=== PATIENT | male | born 1990 | race Caucasian/White ===

== ENCOUNTER 2020-11-21 21:05 | Inpatient (IN) | payer OTHER ==
[~2020-11-21] VITALS: Ht 177.8 cm; Wt 86.6 kg
[2020-11-21 21:11] VITALS: BP 142/94
[2020-11-21 21:40] LABS: ABSOLUTE LYMPHOCYTES 1.2 thou/uL (0.8-5.3); ABSOLUTE MONOCYTES 0.7 thou/uL (0.0-1.2); ABSOLUTE NEUTROPHILS 8.8 thou/uL (1.6-8.1); BASOPHILS 0.4 %; EOSINOPHILS 0.1 %; HEMATOCRIT 47.3 % (42.0-52.0); HEMOGLOBIN 16.3 gm/dL (14.0-18.0); MCH 34.4 pg (26.0-34.0); MCHC 34.5 g/dL (28.0-37.0); MCV 99.7 fL (80.0-100.0); MONOCYTES 6.5 %; MPV 7.7 fl. (7.2-11.1); NUCLEATED RBCS 0 /100WBC; PLATELET COUNT* 290 thou/uL (150-400); RBC 4.74 mil/uL (4.50-6.00); RDW-CV 13.8 % (10.5-14.5); WBC 10.7 thou/uL (4.0-11.0)
[2020-11-21 21:48] LABS: CALCIUM 8.5 mg/dL (8.5-10.1); CREATININE 0.9 mg/dL (0.6-1.3); POTASSIUM 3.3 mmol/L (3.5-5.1)
[2020-11-21 21:53] LABS: ALBUMIN 3.3 g/dL (3.4-5.0); TOTAL BILIRUBIN 0.4 mg/dL (<0.1-1.0); TOTAL PROTEIN 7.1 g/dL (6.4-8.2)
[2020-11-21 23:09] VITALS: BP 130/80
[2020-11-22 00:19] LABS: URINE BILIRUBIN NEGATIVE (Negative); URINE BLOOD NEGATIVE (Negative); URINE CLARITY CLEAR; URINE COLOR YELLOW; URINE GLUCOSE-RANDOM NEGATIVE (Negative); URINE KETONES TRACE (Negative); URINE LEUKOCYTES-REFLEX NEGATIVE (Negative); URINE NITRITE-REFLEX NEGATIVE (Negative); URINE PROTEIN NEGATIVE (Negative); URINE SPECIFIC GRAVITY 1.015 (1.005-1.030); URINE UROBILINOGEN 0.2 E.U./dl (0.2-1.0)
[2020-11-22 02:25] VITALS: BP 135/76
[2020-11-22 02:40] VITALS: BP 130/87
[2020-11-22 08:00] VITALS: BP 115/76
[2020-11-22 12:11] VITALS: BP 129/91
[2020-11-22 12:24] LABS: HEMATOCRIT 49.2 % (42.0-52.0); HEMOGLOBIN 16.9 gm/dL (14.0-18.0); MCH 34.2 pg (26.0-34.0); MCHC 34.3 g/dL (28.0-37.0); MCV 99.6 fL (80.0-100.0); MPV 7.7 fl. (7.2-11.1); NUCLEATED RBCS 0 /100WBC; PLATELET COUNT* 247 thou/uL (150-400); RBC 4.93 mil/uL (4.50-6.00); WBC 12.5 thou/uL (4.0-11.0)
[2020-11-22 12:34] LABS: INR 1.1; PROTIME 11.2 Seconds (9.20-11.50)
[2020-11-22 12:41] LABS: ALBUMIN 3.1 g/dL (3.4-5.0); CALCIUM 8.7 mg/dL (8.5-10.1); CREATININE 0.8 mg/dL (0.6-1.3); MAGNESIUM 1.7 mg/dL (1.8-2.4); PHOSPHORUS* 3.2 mg/dL (2.5-4.9); POTASSIUM 3.4 mmol/L (3.5-5.1); TOTAL PROTEIN 6.6 g/dL (6.4-8.2)
[2020-11-22 12:55] LABS: ABSOLUTE LYMPHOCYTES 0.8 thou/uL (0.8-5.3); ABSOLUTE MONOCYTES 0.4 thou/uL (0.0-1.2); ABSOLUTE NEUTROPHILS 11.4 thou/uL (1.6-8.1); ANISOCYTOSIS 1+; PLATELET ESTIMATE ADEQUATE; POIKILOCYTOSIS 1+
[2020-11-22 16:50] VITALS: BP 130/97
[2020-11-22 18:13] LABS: URINE BLOOD NEGATIVE (Negative); URINE CLARITY CLEAR; URINE GLUCOSE-RANDOM NEGATIVE (Negative); URINE KETONES TRACE (Negative); URINE LEUKOCYTES-REFLEX NEGATIVE (Negative); URINE PROTEIN 1+ (Negative); URINE SPECIFIC GRAVITY >= 1.030 (1.005-1.030); URINE UROBILINOGEN 0.2 E.U./dl (0.2-1.0)
[2020-11-22 18:20] LABS: AMP/METHAMP Negative (Negative); BARBITURATES Negative (Negative); BENZODIAZEPINES Negative (Negative); COCAINE Negative (Negative); METHADONE Negative (Negative); OPIATES POSITIVE (Negative); PCP Negative (Negative); THC POSITIVE (Negative)
[2020-11-22 18:23] LABS: URINE BILIRUBIN 1+ (Negative); URINE COLOR AMBER; URINE NITRITE-REFLEX POSITIVE (Negative)
[2020-11-22 18:24] LABS: ICTOTEST (BILI CONFIRMATORY) Positive (Negative)
[2020-11-22 18:27] LABS: AMORPHOUS URATES Few /LPF (None Seen); BACTERIA-REFLEX 1-9 Few /HPF (None Seen); CASTS None Seen /LPF (None Seen); MUCUS >6 Heavy strn/LPF (None Seen); SQUAMOUS 0-3 Few /LPF (0-3); URINE RBC 0-2 Rare /HPF (0-2); URINE WBC-REFLEX 0-5 Rare /HPF (0-5)
[2020-11-23] VITALS: BP 131/90
[2020-11-23 04:00] VITALS: BP 136/87
[2020-11-23 07:56] VITALS: BP 128/99
[2020-11-23 10:51] LABS: CALCIUM 7.4 mg/dL (8.5-10.1); CREATININE 0.9 mg/dL (0.6-1.3); POTASSIUM 3.8 mmol/L (3.5-5.1)
[2020-11-23 10:53] LABS: MAGNESIUM 1.7 mg/dL (1.8-2.4); PHOSPHORUS* 1.9 mg/dL (2.5-4.9)
[2020-11-23 11:44] VITALS: BP 137/101
[2020-11-23 16:23] VITALS: BP 135/86
[2020-11-24] VITALS: BP 110/76
[2020-11-24 04:00] VITALS: BP 111/61
[2020-11-24 04:04] LABS: CALCIUM 7.6 mg/dL (8.5-10.1); CREATININE 0.9 mg/dL (0.6-1.3); MAGNESIUM 1.8 mg/dL (1.8-2.4); PHOSPHORUS* 2.2 mg/dL (2.5-4.9); POTASSIUM 3.1 mmol/L (3.5-5.1)
[2020-11-24 08:00] VITALS: BP 124/84
[2020-11-24 12:00] VITALS: BP 106/79
[2020-11-24 16:00] VITALS: BP 128/83
[2020-11-24 20:00] VITALS: BP 120/80
[2020-11-25] VITALS: BP 113/88
[2020-11-25 04:00] VITALS: BP 150/71
[2020-11-25 04:25] LABS: ABSOLUTE BASOPHILS 0.1 thou/uL (0.0-0.2); ABSOLUTE EOSINOPHILS 0.2 thou/uL (0.0-0.7); ABSOLUTE LYMPHOCYTES 1.5 thou/uL (0.8-5.3); ABSOLUTE MONOCYTES 1.3 thou/uL (0.0-1.2); BASOPHILS 0.7 %; HEMATOCRIT 37.4 % (42.0-52.0); MCH 34.2 pg (26.0-34.0); MCHC 34.5 g/dL (28.0-37.0); MCV 99.3 fL (80.0-100.0); MONOCYTES 13.2 %; MPV 8.4 fl. (7.2-11.1); NUCLEATED RBCS 0 /100WBC; POLYS 69.1 %; RBC 3.77 mil/uL (4.50-6.00); RDW-CV 13.6 % (10.5-14.5); WBC 10.2 thou/uL (4.0-11.0)
[2020-11-25 04:34] LABS: CALCIUM 7.7 mg/dL (8.5-10.1); CREATININE 0.8 mg/dL (0.6-1.3); HEMOGLOBIN 12.9 gm/dL (14.0-18.0); MAGNESIUM 2.2 mg/dL (1.8-2.4); PHOSPHORUS* 2.3 mg/dL (2.5-4.9); PLATELET COUNT* 157 thou/uL (150-400)
[2020-11-25 04:37] LABS: POTASSIUM 2.8 mmol/L (3.5-5.1)
[2020-11-25 08:04] VITALS: BP 121/76
[2020-11-25] MEDS ORDERED: ATIVAN1 M1 PO (09:38)
[2020-11-25] MEDS ORDERED: OXYCODONE HCL 55 MG PO (09:38)
[2020-11-25 10:12] VITALS: BP 121/76
[2020-11-25 12:14] VITALS: BP 128/88
== END 2020-11-25 12:15 | disposition home or self-care (01) | DRG 440 ==
LOC: M.ERS 21:05 → M.TBA-ER 22:14 → M.2W 11-22 03:56
PROVIDERS: Family Medicine; ADMIT Internal Medicine; ATTEND Internal Medicine
DX: K85.20 Alcohol induced acute pancreatitis without necrosis or infection (principal); F17.210 Nicotine dependence, cigarettes, uncomplicated; E87.6 Hypokalemia; R74.9 Abnormal serum enzyme level, unspecified; E83.39 Other disorders of phosphorus metabolism; E83.51 Hypocalcemia; F10.129 Alcohol abuse with intoxication, unspecified; Y90.9 Presence of alcohol in blood, level not specified; Z20.822 Contact with and (suspected) exposure to COVID-19

== ENCOUNTER 2021-02-12 13:54 | Inpatient (IN) | payer OTHER ==
[~2021-02-12] VITALS: Ht 177.8 cm; Wt 89.1 kg
[~2021-02-12 13:54] MED LIST: ATIVAN1 M1 PO; OXYCODONE HCL 55 MG PO
[2021-02-12 14:04] VITALS: BP 183/111
[2021-02-12 14:13] LABS: ABSOLUTE BASOPHILS 0.1 thou/uL (0.0-0.2); ABSOLUTE EOSINOPHILS 0.2 thou/uL (0.0-0.7); ABSOLUTE LYMPHOCYTES 3.7 thou/uL (0.8-5.3); ABSOLUTE MONOCYTES 1.4 thou/uL (0.0-1.2); ABSOLUTE NEUTROPHILS 9.5 thou/uL (1.6-8.1); BASOPHILS 0.9 %; EOSINOPHILS 1.3 %; HEMATOCRIT 53.7 % (42.0-52.0); HEMOGLOBIN 18.4 gm/dL (14.0-18.0); LYMPHOCYTES 24.7 %; MCH 34.1 pg (26.0-34.0); MCHC 34.4 g/dL (28.0-37.0); MCV 99.3 fL (80.0-100.0); MONOCYTES 9.5 %; MPV 7.6 fl. (7.2-11.1); NUCLEATED RBCS 0 /100WBC; PLATELET COUNT* 352 thou/uL (150-400); POLYS 63.6 %; RDW-CV 14.5 % (10.5-14.5); WBC 14.9 thou/uL (4.0-11.0)
[2021-02-12 14:21] LABS: ANION GAP 15 mmol/L (7-16); BUN 4 mg/dL (7-18); CHLORIDE 97 mmol/L (98-107); CO2 23 mmol/L (21-32); CREATININE 1.1 mg/dL (0.6-1.3); GLUCOSE 154 mg/dL (70-99); POTASSIUM 3.1 mmol/L (3.5-5.1); SODIUM 135 mmol/L (136-145)
[2021-02-12 14:27] LABS: ALBUMIN 4.3 g/dL (3.4-5.0); ALKALINE PHOSPHATASE 139 U/L (46-116); SGOT 40 U/L (15-37); SGPT 41 U/L (30-65); TOTAL BILIRUBIN 0.8 mg/dL (<0.1-1.0); TOTAL PROTEIN 8.9 g/dL (6.4-8.2)
[2021-02-12 15:00] LABS: LIPASE > 30000 U/L (73-393)
[2021-02-12 15:47] LABS: URINE BILIRUBIN NEGATIVE (Negative); URINE BLOOD NEGATIVE (Negative); URINE CLARITY CLEAR; URINE COLOR YELLOW; URINE GLUCOSE-RANDOM NEGATIVE (Negative); URINE KETONES 1+ (Negative); URINE LEUKOCYTES-REFLEX NEGATIVE (Negative); URINE NITRITE-REFLEX NEGATIVE (Negative); URINE PROTEIN NEGATIVE (Negative); URINE SPECIFIC GRAVITY <= 1.005 (1.005-1.030); URINE UROBILINOGEN 0.2 E.U./dl (0.2-1.0)
[2021-02-12 15:55] LABS: MAGNESIUM 2.2 mg/dL (1.8-2.4); PHOSPHORUS* 3.4 mg/dL (2.5-4.9)
[2021-02-12 18:33] LABS: AMP/METHAMP Negative (Negative); BARBITURATES Negative (Negative); BENZODIAZEPINES Negative (Negative); COCAINE Negative (Negative); METHADONE Negative (Negative); OPIATES POSITIVE (Negative); PCP Negative (Negative); THC POSITIVE (Negative)
[2021-02-12 20:44] VITALS: BP 133/62
[2021-02-12 23:41] VITALS: BP 144/83
[2021-02-13 03:52] VITALS: BP 133/89
[2021-02-13 04:49] LABS: ABSOLUTE LYMPHOCYTES 0.9 thou/uL (0.8-5.3); ABSOLUTE MONOCYTES 1.5 thou/uL (0.0-1.2); ABSOLUTE NEUTROPHILS 13.4 thou/uL (1.6-8.1); BASOPHILS 0.2 %; HEMATOCRIT 56.4 % (42.0-52.0); HEMOGLOBIN 19.1 gm/dL (14.0-18.0); LYMPHOCYTES 5.5 %; MCH 33.8 pg (26.0-34.0); MCHC 33.9 g/dL (28.0-37.0); MCV 99.6 fL (80.0-100.0); MONOCYTES 9.6 %; MPV 8.1 fl. (7.2-11.1); NUCLEATED RBCS 0 /100WBC; POLYS 84.7 %; RBC 5.66 mil/uL (4.50-6.00); RDW-CV 14.7 % (10.5-14.5); WBC 15.8 thou/uL (4.0-11.0)
[2021-02-13 05:02] LABS: CALCIUM 9.2 mg/dL (8.5-10.1); CREATININE 0.8 mg/dL (0.6-1.3)
[2021-02-13 05:18] LABS: POTASSIUM 4.2 mmol/L (3.5-5.1)
[2021-02-13 05:36] LABS: PLATELET COUNT* 256 thou/uL (150-400)
--- NOTE | 2021-02-13 09:51 | EKG ---
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
[2021-02-13 12:00] VITALS: BP 146/104
[2021-02-13 16:00] VITALS: BP 148/105
[2021-02-14 00:05] VITALS: BP 134/93
[2021-02-14 04:06] LABS: MCH 33.4 pg (26.0-34.0); MCHC 33.6 g/dL (28.0-37.0); MCV 99.4 fL (80.0-100.0); MPV 8.5 fl. (7.2-11.1); RBC 4.73 mil/uL (4.50-6.00); RDW-CV 14.5 % (10.5-14.5); WBC 17.1 thou/uL (4.0-11.0)
[2021-02-14 04:13] VITALS: BP 118/79
[2021-02-14 04:19] LABS: HEMOGLOBIN 15.8 gm/dL (14.0-18.0)
[2021-02-14 05:12] LABS: ALBUMIN 2.2 g/dL (3.4-5.0); CALCIUM 7.7 mg/dL (8.5-10.1); CREATININE 0.8 mg/dL (0.6-1.3); POTASSIUM 3.4 mmol/L (3.5-5.1); TOTAL BILIRUBIN 0.6 mg/dL (<0.1-1.0); TOTAL PROTEIN 5.6 g/dL (6.4-8.2)
[2021-02-14 07:30] VITALS: BP 134/91
[2021-02-14 12:00] VITALS: BP 134/84
[2021-02-14 16:00] VITALS: BP 143/92
[2021-02-14 23:45] VITALS: BP 141/80
[2021-02-15 04:03] VITALS: BP 113/70
[2021-02-15 05:05] LABS: HEMATOCRIT 41.8 % (42.0-52.0); HEMOGLOBIN 14.2 gm/dL (14.0-18.0); MCH 33.7 pg (26.0-34.0); MCV 99.2 fL (80.0-100.0); MPV 8.6 fl. (7.2-11.1); RBC 4.22 mil/uL (4.50-6.00); RDW-CV 14.5 % (10.5-14.5); WBC 11.4 thou/uL (4.0-11.0)
[2021-02-15 05:23] LABS: ALBUMIN 2.2 g/dL (3.4-5.0); CALCIUM 8.4 mg/dL (8.5-10.1); CREATININE 0.6 mg/dL (0.6-1.3); POTASSIUM 3.2 mmol/L (3.5-5.1); TOTAL BILIRUBIN 0.8 mg/dL (<0.1-1.0); TOTAL PROTEIN 5.8 g/dL (6.4-8.2)
[2021-02-15 07:50] VITALS: BP 113/70
[2021-02-15 12:00] VITALS: BP 111/73
[2021-02-15 16:00] VITALS: BP 126/79
[2021-02-15 20:09] VITALS: BP 130/86
[2021-02-15] MEDS ORDERED: MELATONIN10 M3 PO (20:29)
[2021-02-15 23:47] VITALS: BP 117/81
[2021-02-16 03:31] VITALS: BP 119/78
[2021-02-16 04:05] LABS: ABSOLUTE BASOPHILS 0.1 thou/uL (0.0-0.2); ABSOLUTE EOSINOPHILS 0.1 thou/uL (0.0-0.7); ABSOLUTE LYMPHOCYTES 1.2 thou/uL (0.8-5.3); ABSOLUTE MONOCYTES 1.2 thou/uL (0.0-1.2); ABSOLUTE NEUTROPHILS 6.4 thou/uL (1.6-8.1); BASOPHILS 0.6 %; EOSINOPHILS 1.1 %; HEMATOCRIT 39.1 % (42.0-52.0); HEMOGLOBIN 13.3 gm/dL (14.0-18.0); LYMPHOCYTES 13.9 %; MCH 33.9 pg (26.0-34.0); MCHC 33.9 g/dL (28.0-37.0); MCV 100.1 fL (80.0-100.0); MONOCYTES 12.8 %; MPV 8.3 fl. (7.2-11.1); NUCLEATED RBCS 0 /100WBC; PLATELET COUNT* 162 thou/uL (150-400); POLYS 71.6 %; RBC 3.91 mil/uL (4.50-6.00); RDW-CV 14.3 % (10.5-14.5)
[2021-02-16 04:33] LABS: ALBUMIN 2.1 g/dL (3.4-5.0); CALCIUM 8.3 mg/dL (8.5-10.1); CREATININE 0.6 mg/dL (0.6-1.3); POTASSIUM 3.2 mmol/L (3.5-5.1); TOTAL BILIRUBIN 0.7 mg/dL (<0.1-1.0); TOTAL PROTEIN 5.6 g/dL (6.4-8.2)
[2021-02-16 08:00] VITALS: BP 117/82
[2021-02-16] MEDS ORDERED: PERCOCET 5-3251 EACH PO (09:39)
[2021-02-16 12:00] VITALS: BP 136/95
[2021-02-16 13:38] VITALS: BP 136/95
== END 2021-02-16 13:45 | disposition home or self-care (01) | DRG 439 ==
LOC: M.ERS 13:54 → M.2W 14:44 → M.TBA-ER 14:44 → M.2W 20:50
PROVIDERS: Family Medicine; Internal Medicine; ADMIT Internal Medicine; ATTEND Internal Medicine
DX: K85.90 Acute pancreatitis without necrosis or infection, unspecified (principal); R65.10 Systemic inflammatory response syndrome (SIRS) of non-infectious origin without acute organ dysfunction; Z90.49 Acquired absence of other specified parts of digestive tract; F10.10 Alcohol abuse, uncomplicated; F17.210 Nicotine dependence, cigarettes, uncomplicated; F12.90 Cannabis use, unspecified, uncomplicated; E86.0 Dehydration; Z20.822 Contact with and (suspected) exposure to COVID-19

== ENCOUNTER 2021-04-28 17:37 | Inpatient (IN) | payer OTHER ==
[~2021-04-28] VITALS: Ht 177.8 cm; Wt 81.3 kg
[~2021-04-28 17:37] MED LIST changes: +MELATONIN10 M3 PO; +PERCOCET 5-3251 EACH PO
[2021-04-28 18:05] VITALS: BP 141/86
[2021-04-28 19:19] LABS: ABSOLUTE BASOPHILS 0.1 thou/uL (0.0-0.2); ABSOLUTE LYMPHOCYTES 1.4 thou/uL (0.8-5.3); ABSOLUTE NEUTROPHILS 8.8 thou/uL (1.6-8.1); BASOPHILS 0.5 %; EOSINOPHILS 0.4 %; HEMATOCRIT 47.8 % (42.0-52.0); HEMOGLOBIN 16.9 gm/dL (14.0-18.0); LYMPHOCYTES 12.3 %; MCH 34.8 pg (26.0-34.0); MCHC 35.4 g/dL (28.0-37.0); MCV 98.3 fL (80.0-100.0); MONOCYTES 8.9 %; MPV 7.7 fl. (7.2-11.1); NUCLEATED RBCS 0 /100WBC; PLATELET COUNT* 233 thou/uL (150-400); POLYS 77.9 %; RBC 4.86 mil/uL (4.50-6.00); RDW-CV 14.4 % (10.5-14.5); WBC 11.3 thou/uL (4.0-11.0)
[2021-04-28 19:27] LABS: CALCIUM 8.5 mg/dL (8.5-10.1); CREATININE 0.7 mg/dL (0.6-1.3); POTASSIUM 3.6 mmol/L (3.5-5.1)
[2021-04-28 19:32] LABS: ALBUMIN 3.7 g/dL (3.4-5.0); TOTAL BILIRUBIN 1.1 mg/dL (<0.1-1.0); TOTAL PROTEIN 7.2 g/dL (6.4-8.2)
[2021-04-29] VITALS (7 sets, daily range): BP systolic 102–140; BP diastolic 65–99
[2021-04-29 10:24] LABS: CALCIUM 8.1 mg/dL (8.5-10.1); CREATININE 0.6 mg/dL (0.6-1.3); POTASSIUM 3.6 mmol/L (3.5-5.1)
--- NOTE | 2021-04-29 11:04 | EKG ---
[place] [address] ELECTROCARDIOGRAM REPORT Name: SANTO GUTIERRES Room: [address] M.R.#: [id number] Admission: 04/28/21 Attend Phys: Abrahan Dickey Discharge: Date of : 88 Date of Service: 04/28/21 2309 Report #: [id number] THIS REPORT FOR: //name// 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[place] : 1990 Requested By: Shawanda Kam Order Number: [id number] MD: Chetan Rodriguez Measurements Intervals [place] Rate: 54 P: 40 [place]: 162 QRS: 44 QRSD: 99 T: 51 QT: 458 QTc: 435 Interpretive Statements Sinus rhythm ST elev, probable normal early repol pattern Compared to ECG 02/12/2021 14:08:29 ST (T wave) deviation now present Heart rate has decreased Electronically Signed On 04-29-2021 11:04:01 CDT by Chetan Rodriguez [email or web address] <ELECTRONICALLY SIGNED> By: Chetan Rodriguez MD, [facility] 04/29/21 1104 2309 2309 Chetan Rodriguez MD, [facility] /EPI
[2021-04-29 23:53] LABS: URINE BILIRUBIN NEGATIVE (Negative); URINE BLOOD TRACE (Negative); URINE CLARITY CLEAR; URINE COLOR YELLOW; URINE GLUCOSE-RANDOM NEGATIVE (Negative); URINE LEUKOCYTES-REFLEX NEGATIVE (Negative); URINE NITRITE-REFLEX NEGATIVE (Negative); URINE PROTEIN NEGATIVE (Negative); URINE SPECIFIC GRAVITY 1.025 (1.005-1.030); URINE UROBILINOGEN 0.2 E.U./dl (0.2-1.0)
[2021-04-29 23:54] LABS: URINE KETONES 3+ (Negative)
[2021-04-29 23:57] LABS: ACETEST (KETONE CONFIRMATORY) Moderate (Negative)
[2021-04-30] LABS: AMP/METHAMP Negative (Negative); BARBITURATES Negative (Negative); BENZODIAZEPINES Negative (Negative); COCAINE Negative (Negative); METHADONE Negative (Negative); OPIATES POSITIVE (Negative); PCP Negative (Negative); THC POSITIVE (Negative)
[2021-04-30 00:25] VITALS: BP 124/77
[2021-04-30 04:09] LABS: HEMATOCRIT 41.9 % (42.0-52.0); MCH 34.4 pg (26.0-34.0); MCHC 35.4 g/dL (28.0-37.0); MCV 97.3 fL (80.0-100.0); MPV 8.3 fl. (7.2-11.1); RBC 4.3 mil/uL (4.50-6.00); RDW-CV 13.6 % (10.5-14.5); WBC 6.7 thou/uL (4.0-11.0)
[2021-04-30 04:32] LABS: HEMOGLOBIN 14.8 gm/dL (14.0-18.0)
[2021-04-30 04:40] LABS: ALBUMIN 2.6 g/dL (3.4-5.0); CALCIUM 7.6 mg/dL (8.5-10.1); CREATININE 0.6 mg/dL (0.6-1.3); MAGNESIUM 2.1 mg/dL (1.8-2.4); POTASSIUM 3.5 mmol/L (3.5-5.1); TOTAL BILIRUBIN 1.9 mg/dL (<0.1-1.0); TOTAL PROTEIN 5.7 g/dL (6.4-8.2)
[2021-04-30 04:43] VITALS: BP 122/72
[2021-04-30 07:50] VITALS: BP 112/77
[2021-04-30 12:12] VITALS: BP 122/72
== END 2021-04-30 10:45 | disposition left against medical advice (07) | DRG 440 ==
LOC: M.ERS 17:37 → M.TBA-ER 20:30 → M.2W 23:15
PROVIDERS: Internal Medicine; Physician Assistant; ADMIT Internal Medicine; ATTEND Internal Medicine
DX: K85.20 Alcohol induced acute pancreatitis without necrosis or infection (principal); F12.90 Cannabis use, unspecified, uncomplicated; F17.210 Nicotine dependence, cigarettes, uncomplicated; F10.10 Alcohol abuse, uncomplicated; Y90.9 Presence of alcohol in blood, level not specified; R79.89 Other specified abnormal findings of blood chemistry; Z53.21 Procedure and treatment not carried out due to patient leaving prior to being seen by health care provider; Z20.822 Contact with and (suspected) exposure to COVID-19; Z90.49 Acquired absence of other specified parts of digestive tract

== ENCOUNTER 2021-05-02 06:35 | Inpatient (IN) | payer OTHER ==
[~2021-05-02] VITALS: Ht 177.8 cm; Wt 72.8 kg
[2021-05-02 06:57] VITALS: BP 152/93
[2021-05-02 08:17] LABS: ABSOLUTE BASOPHILS 0.1 thou/uL (0.0-0.2); ABSOLUTE EOSINOPHILS 0.2 thou/uL (0.0-0.7); ABSOLUTE LYMPHOCYTES 1.2 thou/uL (0.8-5.3); ABSOLUTE NEUTROPHILS 6.9 thou/uL (1.6-8.1); BASOPHILS 0.5 %; EOSINOPHILS 1.8 %; HEMATOCRIT 44.4 % (42.0-52.0); HEMOGLOBIN 16.4 gm/dL (14.0-18.0); LYMPHOCYTES 12.5 %; MCH 35.6 pg (26.0-34.0); MCHC 36.8 g/dL (28.0-37.0); MCV 96.7 fL (80.0-100.0); MONOCYTES 11.2 %; NUCLEATED RBCS 0 /100WBC; PLATELET COUNT* 205 thou/uL (150-400); RBC 4.59 mil/uL (4.50-6.00); WBC 9.3 thou/uL (4.0-11.0)
[2021-05-02 08:22] LABS: CALCIUM 8.8 mg/dL (8.5-10.1); CREATININE 0.7 mg/dL (0.6-1.3); POTASSIUM 3.7 mmol/L (3.5-5.1)
[2021-05-02 08:27] LABS: ALBUMIN 3.4 g/dL (3.4-5.0); TOTAL BILIRUBIN 0.8 mg/dL (<0.1-1.0); TOTAL PROTEIN 7.3 g/dL (6.4-8.2)
--- NOTE | 2021-05-02 12:04 | EKG ---
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: ENRRIQUE : 1990 Requested By: Doyle Ceballos Order Number: [id number] MD: Derek Treviño Measurements Intervals [place] Rate: 65 P: 35 [place]: 150 QRS: 16 QRSD: 99 T: 34 QT: 415 QTc: 432 Interpretive Statements Sinus rhythm ST elev, probable normal early repol pattern Compared to ECG 04/28/2021 23:09:23 No significant changes Electronically Signed On 05-02-2021 12:04:30 CDT by Derek Treviño [email or web address] <ELECTRONICALLY SIGNED> By: Derek Treviño MD, FACC 05/02/21 1204 4 4 Derek Treviño MD, [facility] /EPI
[2021-05-02 17:33] VITALS: BP 124/84
[2021-05-02 21:30] VITALS: BP 128/80
[2021-05-02 21:39] VITALS: BP 142/89
[2021-05-02 22:39] LABS: PHOSPHORUS* 3.5 mg/dL (2.5-4.9)
[2021-05-03 04:46] LABS: ABSOLUTE BASOPHILS 0.1 thou/uL (0.0-0.2); ABSOLUTE EOSINOPHILS 0.3 thou/uL (0.0-0.7); ABSOLUTE LYMPHOCYTES 1.9 thou/uL (0.8-5.3); ABSOLUTE MONOCYTES 0.8 thou/uL (0.0-1.2); ABSOLUTE NEUTROPHILS 4.7 thou/uL (1.6-8.1); BASOPHILS 0.9 %; EOSINOPHILS 4.2 %; HEMOGLOBIN 15.4 gm/dL (14.0-18.0); LYMPHOCYTES 23.7 %; MCH 35.2 pg (26.0-34.0); MCHC 35.9 g/dL (28.0-37.0); MONOCYTES 10.6 %; MPV 8.2 fl. (7.2-11.1); NUCLEATED RBCS 0 /100WBC; PLATELET COUNT* 183 thou/uL (150-400); POLYS 60.6 %; RBC 4.38 mil/uL (4.50-6.00); RDW-CV 13.7 % (10.5-14.5); WBC 7.8 thou/uL (4.0-11.0)
--- NOTE | 2021-05-03 04:53 | NUR ---
SENT YOU CALL MESSAGE TO PHYSICIAN AT 2856 ASKING IF IV FLUIDS SHOULD BE ON ORDER, RETURN CALL RECEIVED AT 5740, ORDER GIVEN FOR MAINTINANCE FLUIDS NS AT 150ML/HR. IV FLUIDS STARTED AND INFUSING ORDERED.
[2021-05-03 05:08] LABS: ALBUMIN 3.1 g/dL (3.4-5.0); CALCIUM 8.4 mg/dL (8.5-10.1); CREATININE 0.7 mg/dL (0.6-1.3); POTASSIUM 3.1 mmol/L (3.5-5.1); TOTAL BILIRUBIN 0.7 mg/dL (<0.1-1.0); TOTAL PROTEIN 6.6 g/dL (6.4-8.2)
--- NOTE | 2021-05-03 06:36 | NUR ---
PT A&OX4, VSS ON ROOM AIR, IV FLUIDS INFUSING ORDERED. PT NPO. IV PRN PAIN MED REQUESTED AND GIVEN ORDERED. PT SLEEPING WELL. ASSESSMENTS AND HOURLY ROUNDINGS COMPLETE, WILL CONTINUE TO MONITOR.
[2021-05-03 08:00] VITALS: BP 135/78
--- NOTE | 2021-05-03 08:57 | NUR ---
CM S/W PT WHO INDICATED HE LIVES ALONE, EMPLOYEED FT, ACTIVE AND INDEPENDENT WITH ADLS. PT HAS NO DMES. DENIES HX WITH HH AND SNF. PT HAS NOT ANTICIPATED CM NEEDS AT THIS TIME.
[2021-05-03 16:43] VITALS: BP 132/94
--- NOTE | 2021-05-03 17:30 | NUR ---
PATIENT RESTING IN BED. IV TO RIGHT AC INFUSING NORMAL SALINE AT 200ML/HR., PATENT. POTASSIUM GIVEN PER PROTOCOL. D10 GIVEN PER PROTOCOL FOR LOW BLOOD SUGAR. LABS PENDING. C/O ABDOMINAL PAIN, MORPHINE GIVEN X2. BED IN LOW/LOCKED POSITION. SIDE RAILS UP X2. CALL LIGHT WITHIN REACH. NO QUESTIONS OR CONCERNS VOICED.
[2021-05-03 19:56] VITALS: BP 138/95
--- NOTE | 2021-05-04 00:38 | NUR ---
PT BLOOD GLUCOSE 69 AT 2333, GAVE 4OZ JUICE, BG RECHECK 77.
--- NOTE | 2021-05-04 04:00 | NUR ---
PT A&OX4, VSS ON ROOM AIR, IV FLUIDS INFUSING ORDERED. IV PAIN MEDS REQUESTED AND GIVEN ORDERED. ASSESSMENTS AND HOURLY ROUNDINGS COMPLETE, WILL CONTINUE TO MONITOR.
[2021-05-04 04:29] LABS: ALBUMIN 2.9 g/dL (3.4-5.0); CALCIUM 8.7 mg/dL (8.5-10.1); CREATININE 0.6 mg/dL (0.6-1.3); POTASSIUM 3.9 mmol/L (3.5-5.1); TOTAL BILIRUBIN 0.6 mg/dL (<0.1-1.0); TOTAL PROTEIN 6.3 g/dL (6.4-8.2)
[2021-05-04 08:00] VITALS: BP 112/77
--- NOTE | 2021-05-04 14:49 | NUR ---
POC UPDATED PT IS TO D/C TODAY OR TOMORROW PENDING ABILITY TO TOLERATE DIET. THERE ARE NO CM NEEDS AT THIS TIME.
[2021-05-04 16:25] VITALS: BP 116/75
--- NOTE | 2021-05-04 18:20 | NUR ---
PATIENT TRANSFERED TO [facility] AT THIS TIME VIA WHEELCHAIR ACCOMPANIED BY NURSE STAFFING. IV TO RIGHT AC WITH NORMAL SALINE INFUSING AT 150. C/O ABDOMINAL PAIN. MORPHINE X3 GIVEN. NICOTINE PATCH TO LEFT SHOULDER. BED IN LOW/LOCKED POSITION. CALL LIGHT WITHIN REACH. NO QUESTIONS OR CONCERNS VOICED.
--- NOTE | 2021-05-05 05:09 | NUR ---
PT SLEPT ALL SHIFT, REQUESTED PAIN MEDS AT 0100. RECEIVED ALL FLUIDS/MEDS SCHEDULED. HE IS ALERT AND ORIENTED, AD ARLET, ROOM AIR. DID NOT REQUEST ANYTHING ALL SHIFT OTHER THAN PAIN MEDS ONCE. SLEPT.
[2021-05-05 07:35] VITALS: BP 117/75
[2021-05-05] MEDS ORDERED: OXYCODONE HCL 55 MG PO (10:59)
[2021-05-05 11:30] VITALS: BP 117/75
--- NOTE | 2021-05-05 11:50 | NUR ---
PATIENT DISCHARGED TO HOME. DISCHARGE PAPERS REVIEWED AND SIGNED. PRESCRIPTION TRANSMITTED TO PHARMACY AND INFORMATION SHEETS GIVEN. IV REMOVED. PATIENT TAKEN AMBULATORY TO EXIT. LEFT WITH FRIEND.
[2021-05-05 12:00] VITALS: BP 117/75
== END 2021-05-05 11:50 | disposition home or self-care (01) | DRG 440 ==
LOC: M.ERS 06:35 → M.TBA-ER 08:58 → M.3W 21:33 → M.2W 05-04 18:01
PROVIDERS: Emergency Medicine Emergency Medical Services; ADMIT Internal Medicine; ATTEND Internal Medicine
DX: K85.90 Acute pancreatitis without necrosis or infection, unspecified (principal); F12.90 Cannabis use, unspecified, uncomplicated; F17.210 Nicotine dependence, cigarettes, uncomplicated; Z20.822 Contact with and (suspected) exposure to COVID-19; Z90.49 Acquired absence of other specified parts of digestive tract; Z72.89 Other problems related to lifestyle

== ENCOUNTER 2021-12-09 04:13 | Inpatient (IN) | payer OTHER ==
[~2021-12-09] VITALS: Ht 177.8 cm; Wt 79.2 kg
[2021-12-09 04:24] VITALS: BP 106/56
[2021-12-09 05:02] LABS: ABSOLUTE BASOPHILS 0.1 thou/uL (0.0-0.2); ABSOLUTE EOSINOPHILS 0.2 thou/uL (0.0-0.7); ABSOLUTE LYMPHOCYTES 2.2 thou/uL (0.8-5.3); ABSOLUTE MONOCYTES 0.8 thou/uL (0.0-1.2); ABSOLUTE NEUTROPHILS 5.5 thou/uL (1.6-8.1); BASOPHILS 1.1 %; EOSINOPHILS 2.2 %; HEMATOCRIT 44.6 % (42.0-52.0); HEMOGLOBIN 15.8 gm/dL (14.0-18.0); LYMPHOCYTES 24.5 %; MCH 32.3 pg (26.0-34.0); MCHC 35.4 g/dL (28.0-37.0); MCV 91.4 fL (80.0-100.0); MONOCYTES 9.5 %; MPV 7.4 fl. (7.2-11.1); NUCLEATED RBCS 0 /100WBC; PLATELET COUNT* 297 thou/uL (150-400); POLYS 62.7 %; RBC 4.88 mil/uL (4.50-6.00); RDW-CV 12.4 % (10.5-14.5); WBC 8.8 thou/uL (4.0-11.0)
[2021-12-09 05:40] LABS: CALCIUM 9.1 mg/dL (8.5-10.1); POTASSIUM 3.7 mmol/L (3.5-5.1)
[2021-12-09 05:45] LABS: ALBUMIN 4.1 g/dL (3.4-5.0); TOTAL BILIRUBIN 0.6 mg/dL (<0.1-1.0)
[2021-12-09 07:55] LABS: AMP/METHAMP Negative (Negative); BARBITURATES Negative (Negative); BENZODIAZEPINES Negative (Negative); COCAINE Negative (Negative); METHADONE Negative (Negative); OPIATES Negative (Negative); PCP Negative (Negative); THC Negative (Negative)
[2021-12-09 08:58] LABS: CALCIUM 8.7 mg/dL (8.5-10.1); CREATININE 0.9 mg/dL (0.6-1.3); POTASSIUM 4.2 mmol/L (3.5-5.1)
[2021-12-09 09:01] LABS: MAGNESIUM 2.3 mg/dL (1.8-2.4); PHOSPHORUS* 4.5 mg/dL (2.5-4.9)
[2021-12-09 12:19] VITALS: BP 119/72
[2021-12-09 12:50] VITALS: BP 106/65
[2021-12-09 16:00] VITALS: BP 127/77
[2021-12-09 20:34] VITALS: BP 118/76
[2021-12-10] VITALS: BP 125/81
[2021-12-10 04:00] VITALS: BP 109/73
[2021-12-10 05:24] LABS: CALCIUM 8.1 mg/dL (8.5-10.1); CREATININE 0.8 mg/dL (0.6-1.3)
[2021-12-10 05:39] LABS: POTASSIUM 2.9 mmol/L (3.5-5.1)
[2021-12-10 07:45] VITALS: BP 118/82
[2021-12-10 11:18] VITALS: BP 129/84
[2021-12-10 15:57] VITALS: BP 121/80
[2021-12-10 20:14] VITALS: BP 120/72
[2021-12-11] VITALS: BP 109/71
[2021-12-11 04:00] VITALS: BP 115/77
[2021-12-11 04:32] LABS: CALCIUM 8.2 mg/dL (8.5-10.1); CREATININE 0.8 mg/dL (0.6-1.3); POTASSIUM 3.7 mmol/L (3.5-5.1)
[2021-12-11 08:44] LABS: ABSOLUTE BASOPHILS 0.1 thou/uL (0.0-0.2); ABSOLUTE EOSINOPHILS 0.2 thou/uL (0.0-0.7); ABSOLUTE LYMPHOCYTES 2.4 thou/uL (0.8-5.3); ABSOLUTE MONOCYTES 0.8 thou/uL (0.0-1.2); ABSOLUTE NEUTROPHILS 4.1 thou/uL (1.6-8.1); EOSINOPHILS 2.7 %; HEMATOCRIT 42.3 % (42.0-52.0); HEMOGLOBIN 14.5 gm/dL (14.0-18.0); LYMPHOCYTES 32.2 %; MCH 32.2 pg (26.0-34.0); MCHC 34.2 g/dL (28.0-37.0); MCV 94.1 fL (80.0-100.0); MONOCYTES 10.4 %; NUCLEATED RBCS 0 /100WBC; PLATELET COUNT* 266 thou/uL (150-400); POLYS 53.7 %; RBC 4.49 mil/uL (4.50-6.00); RDW-CV 12.3 % (10.5-14.5); WBC 7.6 thou/uL (4.0-11.0)
[2021-12-11 08:54] LABS: CALCIUM 8.3 mg/dL (8.5-10.1); CREATININE 0.8 mg/dL (0.6-1.3); POTASSIUM 3.7 mmol/L (3.5-5.1)
[2021-12-11 08:59] LABS: TOTAL BILIRUBIN 0.6 mg/dL (<0.1-1.0)
== END 2021-12-11 09:35 | disposition left against medical advice (07) | DRG 440 ==
LOC: M.ERS 04:13 → M.TBA-ER 07:29 → M.2W 12:42
PROVIDERS: Emergency Medicine; Internal Medicine; ADMIT Internal Medicine; ATTEND Internal Medicine
DX: K85.20 Alcohol induced acute pancreatitis without necrosis or infection (principal); Z20.822 Contact with and (suspected) exposure to COVID-19; Z53.29 Procedure and treatment not carried out because of patient's decision for other reasons; F10.129 Alcohol abuse with intoxication, unspecified; E87.6 Hypokalemia